=== PATIENT | female | born 1980 | race African-American/Black ===

== ENCOUNTER 2016-10-06 11:07 | Outpatient (CLI) | payer OTHER ==
--- NOTE | 2016-10-07 07:44 | RAD ---
THREE VIEWS LUMBAR SPINE: DATE: 10/06/16. HISTORY: Back pain since 2007. [employer] disability evaluation. FINDINGS: There are 5 [id number] lumbar-type vertebral bodies. Vertebral body heights and intervertebral disk spaces are within normal limits. No fracture or subluxation is seen involving the lumbar spin e. There are calcifications overlying the mid portion and inferior pole left kidney with the larges t calculus in the inferior pole measuring 6 mm. Phleboliths overlie the pelvis. There is a moderat e amount of retained fecal material seen throughout the colon. IMPRESSION: 1. Normal-appearing views of the lumbar spine without fracture or subluxation. 2. Left nephrolithiasis. POS: [facility]
== END 2016-10-06 11:08 | disposition home or self-care (01) ==
LOC: NAV RAD 11:07
PROVIDERS: ATTEND Family Medicine
DX: Z02.71 Encounter for disability determination (principal); N20.0 Calculus of kidney
CPT/HCPCS: 72100

== ENCOUNTER 2016-10-17 20:42 | Emergency (ER) | payer OTHER, SELFPAY ==
[~2016-10-17 20:42] MED LIST: Iopamidol 370 76% 100 ML VIAL ONE
[2016-10-17] MEDS ORDERED: Sodium Chloride 0.9% 1,000 ML ONE (21:11)
[2016-10-17 21:38] LABS: Amphetamine Not Detected (NotDetected); Barbiturates Screen Not Detected (NotDetected); Benzodiazepine Screen Not Detected (NotDetected); Cocaine Metabolite Screen Not Detected (NotDetected); Medtox Control Line Valid? VALID (VALID); Methadone Not Detected (NotDetected); Methamphetamine Not Detected (NotDetected); Opiate Screen Not Detected (NotDetected); Oxycodone Screen Not Detected (NotDetected); Phencyclidine (PCP) Not Detected (NotDetected); Pregnancy Test - Urine (BHCG) NEGATIVE (NEGATIVE); Pregu Control Bar Appear? YES (CONTROL BAR); Specific Gravity 1.025 (1.002-1.036); THC/Cannabinoid Screen Not Detected (NotDetected); Tricyclic Screen Not Detected (NotDetected)
[2016-10-17 21:40] LABS: #Basophils 0.2 thou/uL (0.0-0.2); #Eosinphils 0.5 thou/uL (0.0-0.7); #Lymphocytes 3.8 thou/uL (1.20-3.40); #Neutrophils 4.9 thou/uL (1.40-6.50); %Basophils 1.7 % (0.0-1.0); %Eosinophils 4.8 % (0.0-10.0); %Lymphocytes 36.9 % (21.0-51.0); %Monocytes 9.5 % (0.0-10.0); %Neutrophils 47.2 % (42.0-75.0); Hemoglobin 13.3 g/dL (12.0-16.0); Mean Corpuscular HGB CONC 32.6 g/dL (32.0-36.0); Mean Corpuscular Hemoglobin 26.1 pg (27.0-31.0); Mean Corpuscular Volume 80.1 fl (81.0-99.0); Mean Platelet Volume 6.1 fL (7.4-10.4); Platelet Count 315 thou/uL (130-400); RBC Distribution Width 12.1 % (11.5-14.5); Red Blood Cell (RBC) Count 5.09 mill/uL (4.20-5.40); White Blood Cell (WBC) Count 10.3 thou/uL (4.8-10.8)
[2016-10-17 21:50] LABS: ALT (SGPT) 16 U/L (0-55); AST (SGOT) 17 U/L (5-34); Alkaline Phosphatase 70 U/L (40-150); Anion Gap 16 mmol/L (10-20); BUN (Urea Nitrogen) 10 mg/dL (7.0-18.7); Bilirubin, Total 0.5 mg/dL (0.2-1.2); Calc. Creatinine Clearance 0 mL/min (70-130); Calcium 9.5 mg/dL (7.8-10.44); Carbon Dioxide 20 mmol/L (22-29); Chloride 109 mmol/L (98-107); Estimated GFR-MDRD 72; Globulin 2.9 g/dL (2.4-3.5); Glucose 113 mg/dL (70-105); Potassium 4.2 mmol/L (3.5-5.1); Protein, Total 6.9 g/dL (6.0-8.3); Sodium 141 mmol/L (136-145)
[2016-10-17 21:51] LABS: CKMB 1.7 ng/mL (0-6.6); Troponin I 0.013 ng/mL (< 0.028)
--- NOTE | 2016-10-17 22:01 | RAD ---
SEMI UPRIGHT PORTABLE CHEST ONE VIEW: History: 36-year-old female with chest pain, primarily left sided. Comparison: 07-31-12 FINDINGS: The heart size is normal. The lungs are clear. No pneumonia, edema, or pleural effusion or other acu te process. IMPRESSION: No acute intrathoracic disease. POS: [facility]
--- NOTE | 2016-10-17 22:55 | CT ---
CHEST CT ANGIOGRAM INCLUDING 3D RENDERING: History: 36-year-old female with chest pain. FINDINGS: No significant CT evidence for acute pulmonary embolism. No mediastinal mass or adenopathy. No pleur al effusion or pulmonary parenchymal process. Unremarkable visualized abdomen. IMPRESSION: Unremarkable chest CT angiogram. No significant CT evidence for acute pulmonary embolism. POS: [facility]
== END 2016-10-17 23:10 | disposition home or self-care (01) ==
LOC: NAV ERS 20:42
DX: M94.0 Chondrocostal junction syndrome [Tietze] (principal); I10 Essential (primary) hypertension
CPT/HCPCS: 71010; 71275; 80053; 80306; 81025; 82553; 84484; 85025; 85379; 93005; 94760; 96360; 96361; J7050

== ENCOUNTER 2017-06-06 15:32 | Emergency (ER) | payer OTHER | END 2017-06-06 16:38 | disposition home or self-care (01) | LOC: NAV ERS 15:32 | DX: R05 Cough (principal); I10 Essential (primary) hypertension | CPT/HCPCS: 99283 ==

== ENCOUNTER 2018-04-21 19:59 | Emergency (ER) | payer OTHER ==
--- NOTE | 2018-04-21 20:31 | RAD ---
TWO VIEWS CHEST 04/21/18 HISTORY: Chest pain. PA and lateral views of the chest is obtained. The lungs are well aerated. No evidence of active intr athoracic disease seen. No evidence of effusions, pneumonia or pneumothorax seen. IMPRESSION: Unremarkable two views chest. POS: [facility]
[2018-04-21 20:46] LABS: #Basophils 0.1 thou/uL (0.0-0.2); #Eosinphils 0.5 thou/uL (0.0-0.7); #Lymphocytes 4.1 thou/uL (1.20-3.40); #Monocytes 0.8 thou/uL (0.11-0.59); #Neutrophils 3.7 thou/uL (1.40-6.50); %Basophils 1.3 % (0.0-1.0); %Eosinophils 5.7 % (0.0-10.0); %Lymphocytes 44.2 % (21.0-51.0); %Monocytes 8.4 % (0.0-10.0); %Neutrophils 40.3 % (42.0-75.0); Hemoglobin 14.1 g/dL (12.0-16.0); Mean Corpuscular HGB CONC 30.7 g/dL (32.0-36.0); Mean Corpuscular Hemoglobin 25.8 pg (27.0-31.0); Mean Corpuscular Volume 83.8 fL (78.0-98.0); Mean Platelet Volume 6.6 fL (7.4-10.4); Platelet Count 353 thou/uL (130-400); Red Blood Cell (RBC) Count 5.48 mill/uL (4.20-5.40); White Blood Cell (WBC) Count 9.2 thou/uL (4.8-10.8)
[2018-04-21 20:47] LABS: BHCG - Serum Negative (NEGATIVE); Pregs Control Bar Appear? YES (CONTROL BAR)
[2018-04-21 20:53] LABS: ALT (SGPT) 17 U/L (8-55); AST (SGOT) 19 U/L (5-34); Albumin 4.5 g/dL (3.5-5.0); Alkaline Phosphatase 74 U/L (40-150); Anion Gap 15 mmol/L (10-20); BUN (Urea Nitrogen) 12 mg/dL (7.0-18.7); Bilirubin, Total 0.8 mg/dL (0.2-1.2); Calc. Creatinine Clearance 0 mL/min (70-130); Calcium 10.1 mg/dL (7.8-10.44); Carbon Dioxide 20 mmol/L (22-29); Chloride 111 mmol/L (98-107); Estimated GFR-MDRD 61; Globulin 2.9 g/dL (2.4-3.5); Glucose 108 mg/dL (70-105); Potassium 3.9 mmol/L (3.5-5.1); Protein, Total 7.4 g/dL (6.0-8.3); Sodium 142 mmol/L (136-145)
[2018-04-21 20:55] LABS: CKMB 1.5 ng/mL (0-6.6); Troponin I Less than 0.010 ng/mL (< 0.028)
--- NOTE | 2018-04-21 22:42 | CT ---
CONTRAST ENHANCED CTA CHEST 04/21/18 HISTORY: 37-year-old female who presents with a history of chest pain. Contrast enhanced CTA chest performed with 2D and 3D reconstructed images performed on an independent 3D workstation. CTA chest demonstrates the lung parenchyma to be unremarkable. No evidence of mediastinal, hilar or axillary lymphadenopathy seen. No evidence pleural or pericardial effusion seen. No evidence of filling defects seen in the pulmonary arteries to suggest pulmonary emboli. Right and left upper pole renal nonobstructing calculi are present. IMPRESSION: No evidence of pulmonary embolus. POS: [facility]
[2018-04-21] MEDS ORDERED: Ibuprofen 800 MG TAB ONE (22:49)
== END 2018-04-21 23:00 | disposition home or self-care (01) ==
LOC: NAV ERS 19:59
DX: R07.89 Other chest pain (principal); R05 Cough; I10 Essential (primary) hypertension; J45.909 Unspecified asthma, uncomplicated; K21.9 Gastro-esophageal reflux disease without esophagitis
CPT/HCPCS: 71046; 71275; 80053; 82553; 84484; 84703; 85025; 85379; 93005; 96360; 96361

== ENCOUNTER 2018-10-12 23:09 | Emergency (ER) | payer OTHER ==
[2018-10-12] MEDS ORDERED: Fleet Enema 133 ML BOT ONE (23:30)
[2018-10-12] MEDS ORDERED: Ondansetron ODT 4 MG TAB ONE (23:58)
== END 2018-10-13 00:12 | disposition home or self-care (01) ==
LOC: NAV ERS 23:09
DX: K59.00 Constipation, unspecified (principal); K21.9 Gastro-esophageal reflux disease without esophagitis; J45.909 Unspecified asthma, uncomplicated; I10 Essential (primary) hypertension; Z79.891 Long term (current) use of opiate analgesic
CPT/HCPCS: 99283; Q0162

== ENCOUNTER 2019-07-11 17:54 | Emergency (ER) | payer OTHER ==
[2019-07-11 18:53] LABS: #Basophils 0.1 thou/uL (0.0-0.2); #Eosinphils 0.4 thou/uL (0.0-0.7); #Lymphocytes 3.5 thou/uL (1.20-3.40); #Monocytes 0.7 thou/uL (0.11-0.59); #Neutrophils 3.5 thou/uL (1.40-6.50); %Basophils 1.7 % (0.0-1.0); %Eosinophils 4.5 % (0.0-10.0); %Lymphocytes 42.8 % (21.0-51.0); %Monocytes 8.3 % (0.0-10.0); %Neutrophils 42.7 % (42.0-75.0); Hemoglobin 13.6 g/dL (12.0-16.0); Mean Corpuscular HGB CONC 31.6 g/dL (32.0-36.0); Mean Corpuscular Hemoglobin 25.6 pg (27.0-31.0); Mean Corpuscular Volume 81.2 fL (78.0-98.0); Mean Platelet Volume 6.1 fL (7.4-10.4); Platelet Count 325 thou/uL (130-400); RBC Distribution Width 12.6 % (11.5-14.5); Red Blood Cell (RBC) Count 5.28 mill/uL (4.20-5.40); White Blood Cell (WBC) Count 8.1 thou/uL (4.8-10.8)
[2019-07-11] MEDS ORDERED: Sodium Chloride 0.9% 1,000 ML ONE (18:55)
[2019-07-11] MEDS ORDERED: Metoclopramide HCl 10 MG/2 ML VIAL ONE (18:55)
[2019-07-11] MEDS ORDERED: diphenhydrAMINE 50 MG/ML VIAL ONE (18:55)
--- NOTE | 2019-07-11 19:03 | CT ---
Exam: Head CT without contrast HISTORY: Headache. Pain. COMPARISON: 03/13/2013 FINDINGS: Hemorrhage: No intraparenchymal hemorrhage or extra-axial hematoma. Brain parenchyma: Cortical meredith-white matter differentiation is preserved. No mass effect or midline shift. Basilar cisterns are patent. Ventricular system: Ventricles and sulci are patent and symmetric. Calvarium: Intact. Sinuses and mastoid air cells: Adequate aeration. IMPRESSION: No acute intracranial process.
--- NOTE | 2019-07-11 19:14 | RAD ---
CHEST ONE VIEW: 07/11/19 INDICATION: Chest pain, shortness of breath. COMPARISON: Prior exam dated 06/18/18. FINDINGS: Lungs are clear. Heart size is normal. No acute osseous abnormality is evident. IMPRESSION: No acute cardiopulmonary abnormality. POS: [facility]
[2019-07-11 19:47] LABS: ALT (SGPT) 18 U/L (8-55); AST (SGOT) 17 U/L (5-34); Albumin 4.1 g/dL (3.5-5.0); Alkaline Phosphatase 69 U/L (40-110); Anion Gap 14 mmol/L (10-20); BUN (Urea Nitrogen) 12 mg/dL (7.0-18.7); Bilirubin, Total 0.7 mg/dL (0.2-1.2); CK (CPK) 258 U/L (29-168); Calc. Creatinine Clearance 0 mL/min (70-130); Calcium 9.3 mg/dL (7.8-10.44); Carbon Dioxide 20 mmol/L (22-29); Chloride 112 mmol/L (98-107); Estimated GFR-MDRD 67; Glucose 104 mg/dL (70-105); Potassium 3.6 mmol/L (3.5-5.1); Protein, Total 7.1 g/dL (6.0-8.3); Sodium 142 mmol/L (136-145)
== END 2019-07-11 20:16 | disposition home or self-care (01) ==
LOC: NAV ERS 17:54
DX: G43.909 Migraine, unspecified, not intractable, without status migrainosus (principal); R07.89 Other chest pain; J45.909 Unspecified asthma, uncomplicated; I10 Essential (primary) hypertension; K21.9 Gastro-esophageal reflux disease without esophagitis
CPT/HCPCS: 36415; 70450; 71045; 80053; 82550; 84484; 85025; 93005; 96361; 96374; 96375; J1200; J2765; J7050

== ENCOUNTER 2025-01-30 07:25 | Emergency (ER) | payer SELFPAY ==
[2025-01-30 08:31] LABS: Glucose, Urine (Dipstick) Negative (Negative); Leukocyte Negative (Negative); Protein, Urine (Dipstick) Negative (Neg-Trace); Specific Gravity, Urine Greater/Equal 1.030 (1.005-1.030)
[2025-01-30] MEDS ORDERED: Mag-Al Plus 1200/1200/120 MG (30 mL) UDCUP ONE (08:39)
[2025-01-30] MEDS ORDERED: Ondansetron PF 4 MG/2 ML Vial ONE (08:39)
[2025-01-30] MEDS ORDERED: Lidocaine Viscous Sol 2% 15 ml UD Cup ONE (08:40)
[2025-01-30] MEDS ORDERED: Pantoprazole 40 MG VIAL ONE (08:40)
[2025-01-30] MEDS ORDERED: Iopamidol 370 76% 100 ML VIAL ONE (09:00)
[2025-01-30 09:06] LABS: #Basophils 0.1 thou/uL (0.0-0.2); #Eosinophils 0.2 thou/uL (0.0-0.7); #Lymphocytes 2.3 thou/uL (1.20-3.40); #Monocytes 0.5 thou/uL (0.11-0.59); #Neutrophils 3.1 thou/uL (1.40-6.50); %Basophils 2.2 % (0.0-1.0); %Eosinophils 3.5 % (0.0-10.0); %Lymphocytes 37.1 % (21.0-51.0); %Monocytes 8.1 % (0.0-10.0); %Neutrophils 49.1 % (42.0-75.0); Hematocrit 45.0 % (36.0-47.0); Hemoglobin 14.4 g/dL (12.0-16.0); Mean Corpuscular Hemoglobin 25.7 pg (27.0-31.0); Mean Corpuscular Volume 80.3 fl (78.0-98.0); Platelet Count 350 10x3/uL (130-400); Red Blood Cell (RBC) Count 5.61 mill/uL (4.20-5.40); White Blood Cell (WBC) Count 6.2 10x3/uL (4.8-10.8)
[2025-01-30 09:18] LABS: ALT (SGPT) 13 U/L (Less than 34); AST (SGOT) 29 U/L (11-34); Albumin 4.3 g/dL (3.1-4.5); Alkaline Phosphatase 66 U/L (40-110); Anion Gap 14 mmol/L (10-20); BUN (Urea Nitrogen) 11 mg/dL (7.0-18.7); Bilirubin, Total 1.3 mg/dL (0.3-1.2); Calc. Creatinine Clearance 0 mL/min (70-130); Calcium 9.7 mg/dL (7.8-10.44); Carbon Dioxide 21 mmol/L (22-29); Chloride 107 mmol/L (98-107); Globulin 3.5 g/dL (2.4-3.5); Glucose 104 mg/dL (70-105); Lipase 17 U/L (8-78); Potassium 3.9 mmol/L (3.5-5.1); Sodium 138 mmol/L (136-145)
== END 2025-01-30 11:15 | disposition home or self-care (01) ==
LOC: NAV ERS 07:25
DX: R10.13 Epigastric pain (principal); R10.31 Right lower quadrant pain; M54.50 Low back pain, unspecified; I10 Essential (primary) hypertension; E11.9 Type 2 diabetes mellitus without complications; Z79.899 Other long term (current) drug therapy
CPT/HCPCS: 74178; 80053; 81001; 83690; 85025; 96374; 96375; J2405; J2470; Q9967